=== PATIENT | female | born 1995 | race Caucasian/White ===

== ENCOUNTER 2022-05-27 17:50 | Emergency (ER) | payer OTHER ==
[2022-05-27] MEDS ORDERED: REGLAN10 MG PO (20:57)
== END 2022-05-27 21:10 | disposition home or self-care (01) ==
LOC: ER1 17:50
DX: J06.9 Acute upper respiratory infection, unspecified (principal); Z20.822 Contact with and (suspected) exposure to COVID-19
CPT/HCPCS: 99283; U0002